=== PATIENT | female | born 1970 | race Caucasian/White ===

== ENCOUNTER 2022-11-18 11:28 | Emergency (ER) | payer OTHER ==
[2022-11-18] MEDS: HYDROmorphone 0.5 MG/0.5 ML Syringe IVPUSH ONE ×2 (11:45→12:30)
[2022-11-18] MEDS: HYDROmorphone 1 MG/ML Syringe IVPUSH ONE (13:31)
== END 2022-11-18 13:42 | disposition home or self-care (01) ==
LOC: VM.ED 11:28
DX: S42.322A Displaced transverse fracture of shaft of humerus, left arm, initial encounter for closed fracture (principal); Z88.8 Allergy status to other drugs, medicaments and biological substances; W18.40XA Slipping, tripping and stumbling without falling, unspecified, initial encounter
CPT/HCPCS: 73060; 96374; 96376; 99284; J1170; 99283